=== PATIENT | female | born 1955 | race Asian ===

== ENCOUNTER 2021-11-10 13:10 | Emergency (ER) | payer MEDICARE, MEDICAID ==
[~2021-11-10] VITALS: Ht 154.9 cm; Wt 57.7 kg
[~2021-11-10 13:10] MED LIST: METF-1203 PO
[2021-11-10 13:17] VITALS: BP 156/89
[2021-11-10] MEDS ORDERED: ondansetron 4mg rapidly disintigrating tab PO ONE (14:30)
[2021-11-10] MEDS ORDERED: HYDROcodone/acetaminophen 5mg/325mg tablet PO ONE (14:30)
[2021-11-10] MEDS ORDERED: ketorolac tromethamine 15mg/ml inj. IM ONE (14:30)
[2021-11-10] MEDS ORDERED: HYDR-3965 PO (15:41)
[2021-11-10] MEDS ORDERED: ONDA4TAB12 PO (15:41)
== END 2021-11-10 16:27 | disposition home or self-care (01) ==
LOC: ER 13:10
DX: S32.010A Wedge compression fracture of first lumbar vertebra, initial encounter for closed fracture (principal); Z79.899 Other long term (current) drug therapy; W19.XXXA Unspecified fall, initial encounter; Y93.89 Activity, other specified; Y92.89 Other specified places as the place of occurrence of the external cause; Y99.8 Other external cause status
CPT/HCPCS: 72131; 96372; 99284; J1885